=== PATIENT | male | born 1965 | race Caucasian/White ===

== ENCOUNTER 2017-08-10 00:41 | Emergency (ER) | payer SELFPAY | END 2017-08-10 00:50 | disposition left against medical advice (07) | LOC: E/R 00:41 | DX: Z53.21 Procedure and treatment not carried out due to patient leaving prior to being seen by health care provider (principal) ==

== ENCOUNTER 2017-12-14 01:43 | Inpatient (IN) | payer MEDICAID ==
[2017-12-14 02:21] LABS: ADD MAN DIFF? NO
[2017-12-14 02:22] LABS: WHITE BLOOD COUNT 11.6 10^3/ul (4.8-10.8)
[2017-12-14 02:22] LABS: BASOPHIL # 0.1 10^3/ul (0.0-0.1); BASOPHILS % 0.6 % (0.0-2.0); EOSINOPHILS # 0.3 10^3/ul (0.0-0.5); EOSINOPHILS % 2.7 % (0.0-7.0); HEMATOCRIT 43.1 % (42.0-52.0); HEMOGLOBIN 14.7 g/dl (14.0-18.0); LYMPHOCYTES # 4.5 10^3/ul (0.8-2.9); MEAN CORPUSCULAR HEMOGLOBIN 31.3 pg (29.0-33.0); MEAN CORPUSCULAR HGB CONC 34.1 g/dl (32.0-37.0); MEAN CORPUSCULAR VOLUME 91.9 fl (82.0-101.0); MEAN PLATELET VOLUME 10.7 fl (7.4-10.4); MONOCYTE # 0.6 10^3/ul (0.3-0.9); MONOCYTES % 5.2 % (0.0-11.0); NEUTROPHIL # 6.1 10^3/ul (1.6-7.5); NEUTROPHILS % 52.1 % (39.0-77.0); PLATELET COUNT 298 10^3/UL (140-415); RED BLOOD COUNT 4.69 10^6/ul (4.70-6.10); RED CELL DISTRIBUTION WIDTH 13.3 % (11.5-14.5)
[2017-12-14] MEDS ORDERED: NITROGLYCERIN (SL) 0.4 MG TAB SL ×2 (02:30→04:30)
[2017-12-14] MEDS: NITROGLYCERIN 2% 1 GM OINT PKT TD (02:41)
[2017-12-14 02:44] LABS: ANION GAP 12 (8-16); BLOOD UREA NITROGEN 20 mg/dl (7-20); CALCIUM 9.5 mg/dl (8.4-10.2); CARBON DIOXIDE 25 mmol/L (21-31); CHLORIDE 108 mmol/L (97-110); CREATININE 0.95 mg/dl (0.61-1.24); GLUCOSE 137 mg/dl (70-220); POTASSIUM 4.2 mmol/L (3.5-5.1); SODIUM 141 mmol/L (135-144)
[2017-12-14 02:45] LABS: INR 0.89; PROTIME 12.1 Sec (11.9-14.9); PT RATIO 0.9
[2017-12-14 02:56] LABS: B-TYPE NATRIURETIC PEPTIDE 309 PG/ML (0-125); TROPONIN-I 0.017 ng/ml (0.000-0.120)
[2017-12-14] MEDS: KETOROLAC 15 MG INJ IV (03:01)
[2017-12-14] MEDS ORDERED: ACETAMINOPHEN 325 MG TAB PO ×2 (03:30→04:30)
[2017-12-14] MEDS ORDERED: ONDANSETRON 4 MG INJ IV ×2 (03:30→04:30)
[2017-12-14] MEDS: FUROSEMIDE 20 MG INJ IV ×2 (03:45→08:12)
[2017-12-14] MEDS ORDERED: DOCUSATE SODIUM 100 MG CAP PO (04:30)
[2017-12-14] MEDS ORDERED: BISACODYL (EC) 5 MG TAB PO (04:30)
[2017-12-14] MEDS ORDERED: NACL 0.9% 3 ML SYG IV (04:30)
[2017-12-14] MEDS: morphine 2 MG INJ IV ×5 (06:32→23:57)
[2017-12-14 06:43] LABS: D-DIMER 1029.72 ng/ml (<460)
[2017-12-14 06:53] LABS: CHOL/HDL RATIO 5.3 RATIO; CHOLESTEROL 156 mg/dl (100-200); HDL CHOLESTEROL 29 mg/dl (28-71); LDL CHOLESTEROL,CALCULATED 80 mg/dl; TRIGLYCERIDES 234 mg/dl (0-149)
[2017-12-14 06:53] LABS: MAGNESIUM 1.7 mg/dl (1.7-2.5)
[2017-12-14 07:04] LABS: HEMOGLOBIN A1C 5.5 % (0-5.9)
[2017-12-14 07:11] LABS: AMPHETAMINE/METHAMPHETAMINE Negative (NEGATIVE); BARBITURATES Negative (NEGATIVE); BENZODIAZEPINES Negative (NEGATIVE); CANNABINOIDS Negative (NEGATIVE); COCAINE Negative (NEGATIVE); OPIATES Negative (NEGATIVE)
[2017-12-14 07:12] LABS: ETHANOL < 10.0 mg/dl
[2017-12-14] MEDS: HYDROCODONE/APAP (5/325) TAB PO ×2 (08:11→17:20)
[2017-12-14] MEDS ORDERED: ENOXAPARIN 40 MG/0.4 ML SYG SC (10:00)
[2017-12-14 10:07] LABS: TROPONIN-I 0.015 ng/ml (0.000-0.120)
[2017-12-14] MEDS: METOPROLOL 50 MG TAB PO ×2 (11:19→20:19)
[2017-12-14] MEDS: ASPIRIN 81 MG TAB PO (11:19)
[2017-12-14] MEDS: NICOTINE (21 MG/24 HR) PATCH TRANSDERM (11:23)
[2017-12-14] MEDS: ENOXAPARIN 100 MG/ML SYG SC ×2 (13:19→20:24)
[2017-12-14] MEDS: IOHEXOL 300MG/ML 150 ML BTL (15:00)
[2017-12-14] MEDS: NIFEdipine (XL) 60 MG TAB PO (18:52)
[2017-12-14] MEDS: ATORVASTATIN 80 MG TAB PO (20:19)
[2017-12-14] MEDS: SOD CHLORIDE 0.9% 100 ML (20:52)
[2017-12-14] MEDS: IOHEXOL 100 ML (20:53)
[2017-12-15] MEDS: hydrALAzine 20 MG INJ IV (00:40)
[2017-12-15] MEDS: DIPHENHYDRAMINE 50 MG CAP PO (01:22)
[2017-12-15 06:12] LABS: ADD MAN DIFF? NO
[2017-12-15 06:17] LABS: WHITE BLOOD COUNT 12.5 10^3/ul (4.8-10.8)
[2017-12-15 06:17] LABS: BASOPHIL # 0.1 10^3/ul (0.0-0.1); BASOPHILS % 0.6 % (0.0-2.0); EOSINOPHILS # 0.3 10^3/ul (0.0-0.5); EOSINOPHILS % 2.2 % (0.0-7.0); HEMATOCRIT 46.6 % (42.0-52.0); LYMPHOCYTES # 3.9 10^3/ul (0.8-2.9); LYMPHOCYTES % 31.3 % (15.0-51.0); MEAN CORPUSCULAR HGB CONC 34.3 g/dl (32.0-37.0); MEAN CORPUSCULAR VOLUME 90.3 fl (82.0-101.0); MONOCYTE # 0.8 10^3/ul (0.3-0.9); MONOCYTES % 6.1 % (0.0-11.0); NEUTROPHIL # 7.4 10^3/ul (1.6-7.5); NEUTROPHILS % 59.3 % (39.0-77.0); PLATELET COUNT 336 10^3/UL (140-415); RED BLOOD COUNT 5.16 10^6/ul (4.70-6.10); RED CELL DISTRIBUTION WIDTH 13.3 % (11.5-14.5)
[2017-12-15 06:55] LABS: ALANINE AMINOTRANSFERASE 23 IU/L (13-69); ALBUMIN/GLOBULIN RATIO 1.14; ALKALINE PHOSPHATASE 87 IU/L (42-121); ANION GAP 13 (8-16); ASPARTATE AMINO TRANSFERASE 25 IU/L (15-46); BILIRUBIN,INDIRECT 0.7 mg/dl (0-1.1); BILIRUBIN,TOTAL 0.7 mg/dl (0.2-1.3); BLOOD UREA NITROGEN 16 mg/dl (7-20); CALCIUM 9.8 mg/dl (8.4-10.2); CARBON DIOXIDE 25 mmol/L (21-31); CHLORIDE 104 mmol/L (97-110); GLUCOSE 108 mg/dl (70-220); POTASSIUM 4.4 mmol/L (3.5-5.1); SODIUM 138 mmol/L (135-144); TOTAL PROTEIN 7.5 g/dl (6.1-8.1)
[2017-12-15] MEDS: ASPIRIN 81 MG TAB PO (08:39)
[2017-12-15] MEDS: FUROSEMIDE 20 MG INJ IV (08:40)
[2017-12-15] MEDS: NIFEdipine (XL) 60 MG TAB PO (08:40)
[2017-12-15] MEDS: ENOXAPARIN 100 MG/ML SYG SC ×2 (08:45→21:34)
[2017-12-15] MEDS: morphine 2 MG INJ IV ×3 (08:46→18:08)
[2017-12-15] MEDS: NICOTINE (21 MG/24 HR) PATCH TRANSDERM (08:47)
[2017-12-15] MEDS ORDERED: NICOTINE (21 MG/24 HR) PATCH TRANSDERM (10:30)
[2017-12-15] MEDS: METOPROLOL 50 MG TAB PO ×2 (10:55→21:26)
[2017-12-15] MEDS: HYDROCODONE/APAP (5/325) TAB PO ×2 (10:59→17:01)
[2017-12-15] MEDS: ALBUTEROL 0.083% (NEB) 2.5 MG/3 ML AMP HHN (14:56)
[2017-12-15] MEDS: ATORVASTATIN 80 MG TAB PO (21:24)
[2017-12-15] MEDS: FISH OIL 1,000 MG CAP PO (21:26)
[2017-12-15] MEDS: MONTELUKAST 5 MG TAB PO (21:26)
[2017-12-15] MEDS: morphine LIQ (10 MG/5 ML) CUP PO (21:39)
[2017-12-16 06:22] LABS: WHITE BLOOD COUNT 10.2 10^3/ul (4.8-10.8)
[2017-12-16 06:22] LABS: ADD MAN DIFF? NO; BASOPHIL # 0.1 10^3/ul (0.0-0.1); BASOPHILS % 0.6 % (0.0-2.0); EOSINOPHILS # 0.3 10^3/ul (0.0-0.5); EOSINOPHILS % 3.3 % (0.0-7.0); HEMATOCRIT 47.6 % (42.0-52.0); HEMOGLOBIN 16.5 g/dl (14.0-18.0); LYMPHOCYTES # 4.9 10^3/ul (0.8-2.9); LYMPHOCYTES % 48.1 % (15.0-51.0); MEAN CORPUSCULAR HEMOGLOBIN 31.5 pg (29.0-33.0); MEAN CORPUSCULAR HGB CONC 34.7 g/dl (32.0-37.0); MEAN CORPUSCULAR VOLUME 90.8 fl (82.0-101.0); MEAN PLATELET VOLUME 10.6 fl (7.4-10.4); MONOCYTE # 0.8 10^3/ul (0.3-0.9); MONOCYTES % 8.1 % (0.0-11.0); NEUTROPHILS % 39.5 % (39.0-77.0); PLATELET COUNT 356 10^3/UL (140-415); RED BLOOD COUNT 5.24 10^6/ul (4.70-6.10); RED CELL DISTRIBUTION WIDTH 13.2 % (11.5-14.5)
[2017-12-16 06:56] LABS: ANION GAP 14 (8-16); BLOOD UREA NITROGEN 14 mg/dl (7-20); CALCIUM 9.5 mg/dl (8.4-10.2); CARBON DIOXIDE 25 mmol/L (21-31); CHLORIDE 105 mmol/L (97-110); CREATININE 0.84 mg/dl (0.61-1.24); GLUCOSE 103 mg/dl (70-220); POTASSIUM 4.3 mmol/L (3.5-5.1); SODIUM 140 mmol/L (135-144)
[2017-12-16] MEDS: morphine LIQ (10 MG/5 ML) CUP PO ×2 (08:17→13:20)
[2017-12-16] MEDS: REGADENOSON 0.4 MG/5 ML SYG (09:18)
[2017-12-16] MEDS: SOD CHLORIDE 0.9% 100 ML (10:13)
[2017-12-16] MEDS: NICOTINE (21 MG/24 HR) PATCH TRANSDERM (10:30)
[2017-12-16] MEDS: NIFEdipine (XL) 60 MG TAB PO (10:31)
[2017-12-16] MEDS: FISH OIL 1,000 MG CAP PO (10:31)
[2017-12-16] MEDS: HYDROCODONE/APAP (5/325) TAB PO (10:31)
[2017-12-16] MEDS: ASPIRIN 81 MG TAB PO (10:32)
[2017-12-16] MEDS: METOPROLOL 50 MG TAB PO (10:32)
[2017-12-16] MEDS: FUROSEMIDE 20 MG INJ IV (10:32)
[2017-12-16] MEDS: ENOXAPARIN 100 MG/ML SYG SC (10:48)
[2017-12-16] MEDS ORDERED: KETOROLAC 15 MG INJ IV (14:00)
[2017-12-16] MEDS: KETOROLAC 15 MG INJ IV (14:41)
== END 2017-12-16 15:10 | disposition home or self-care (01) | DRG 313 ==
LOC: E/R 01:43 → TEL 03:19
DX: R07.89 Other chest pain (principal); I50.42 Chronic combined systolic (congestive) and diastolic (congestive) heart failure; I11.0 Hypertensive heart disease with heart failure; E78.5 Hyperlipidemia, unspecified; F17.200 Nicotine dependence, unspecified, uncomplicated; F41.9 Anxiety disorder, unspecified; J44.9 Chronic obstructive pulmonary disease, unspecified; Z86.73 Personal history of transient ischemic attack (TIA), and cerebral infarction without residual deficits; Z91.14 Patient's other noncompliance with medication regimen
CPT/HCPCS: 36415; 71045; 71275; 74177; 78452; 80048; 80053; 80061; 80307; 83036; 83735; 83880; 84443; 84484; 85025; 85378; 85610; 93005; 93017; 93306; 93970; 94664; 96374; 99285-25

== ENCOUNTER 2018-02-17 12:09 | Emergency (ER) | payer MEDICAID ==
[2018-02-17] MEDS: KETOROLAC 60 MG INJ IM (13:36)
[2018-02-17] MEDS: HYDROCODONE/APAP (10/325) TAB PO (13:36)
== END 2018-02-17 14:33 | disposition home or self-care (01) ==
LOC: FTE 12:09
DX: S39.92XA Unspecified injury of lower back, initial encounter (principal); I11.0 Hypertensive heart disease with heart failure; I50.9 Heart failure, unspecified; J44.9 Chronic obstructive pulmonary disease, unspecified; F17.210 Nicotine dependence, cigarettes, uncomplicated; X50.0XXA Overexertion from strenuous movement or load, initial encounter; Y92.9 Unspecified place or not applicable; Z79.82 Long term (current) use of aspirin; Z86.73 Personal history of transient ischemic attack (TIA), and cerebral infarction without residual deficits
CPT/HCPCS: 72100; 96372; 99284-25

== ENCOUNTER 2018-04-03 16:19 | Inpatient (IN) | payer MEDICAID ==
[2018-04-03 19:26] LABS: ADD MAN DIFF? NO
[2018-04-03 19:28] LABS: BASOPHILS % 0.2 % (0.0-2.0); EOSINOPHILS % 0.1 % (0.0-7.0); HEMATOCRIT 45.4 % (42.0-52.0); LYMPHOCYTES # 1.8 10^3/ul (0.8-2.9); LYMPHOCYTES % 11.4 % (15.0-51.0); MEAN CORPUSCULAR HEMOGLOBIN 30.4 pg (29.0-33.0); MEAN CORPUSCULAR VOLUME 91.9 fl (82.0-101.0); MEAN PLATELET VOLUME 10.3 fl (7.4-10.4); MONOCYTE # 0.8 10^3/ul (0.3-0.9); MONOCYTES % 5.2 % (0.0-11.0); NEUTROPHIL # 13.2 10^3/ul (1.6-7.5); NEUTROPHILS % 82.6 % (39.0-77.0); PLATELET COUNT 290 10^3/UL (140-415); RED BLOOD COUNT 4.94 10^6/ul (4.70-6.10); RED CELL DISTRIBUTION WIDTH 13.6 % (11.5-14.5)
[2018-04-03] MEDS: ONDANSETRON 4 MG INJ IV (19:34)
[2018-04-03] MEDS: morphine 4 MG/ML VIAL IV (19:34)
[2018-04-03 19:47] LABS: ALBUMIN 3.7 g/dl (3.3-4.9); ALKALINE PHOSPHATASE 114 IU/L (42-121); ANION GAP 11 (5-13); BILIRUBIN,INDIRECT 0.8 mg/dl (0-1.1); BILIRUBIN,TOTAL 0.8 mg/dl (0.2-1.3); BLOOD UREA NITROGEN 67 mg/dl (7-20); CALCIUM 8.7 mg/dl (8.4-10.2); CARBON DIOXIDE 32 mmol/L (21-31); CHLORIDE 95 mmol/L (97-110); CREATININE 7.46 mg/dl (0.61-1.24); Estimated GFR 8 mL/min (>60); GLUCOSE 119 mg/dl (70-220); LIPASE 58 U/L (23-300); POTASSIUM 3.3 mmol/L (3.5-5.1); SODIUM 138 mmol/L (135-144); TOTAL PROTEIN 7.4 g/dl (6.1-8.1)
[2018-04-03] MEDS: SOD CHLORIDE 0.9% 500 ML IV (19:58)
[2018-04-03 20:01] LABS: ALANINE AMINOTRANSFERASE 1397 IU/L (13-69); ASPARTATE AMINO TRANSFERASE 1433 IU/L (15-46)
[2018-04-03 20:51] LABS: CREATINE KINASE 22820 IU/L (23-200)
[2018-04-03] MEDS ORDERED: ACETAMINOPHEN 325 MG TAB PO (21:30)
[2018-04-03] MEDS ORDERED: ONDANSETRON 4 MG INJ IV ×2 (21:30→22:00)
[2018-04-03 21:35] LABS: ADD UMIC YES; UR AMORPHOUS CRYSTAL FEW /HPF (NONE SEEN); UR ASCORBIC ACID NEGATIVE (NEGATIVE); UR BACTERIA FEW /HPF (NONE SEEN); UR BILIRUBIN (Dip) NEGATIVE (NEGATIVE); UR BLOOD (Dip) 2+ mg/dL (NEGATIVE); UR CLARITY SLIGHTLY CLOUDY (CLEAR); UR COLOR YELLOW (YELLOW); UR GLUCOSE (Dip) NEGATIVE (NEGATIVE); UR KETONES (Dip) NEGATIVE (NEGATIVE); UR LEUKOCYTE ESTERASE (Dip) NEGATIVE Leu/ul (NEGATIVE); UR NITRITE (Dip) NEGATIVE (NEGATIVE); UR RBC 3 /HPF (0-5); UR TOTAL PROTEIN (Dip) 1+ mg/dl (NEGATIVE); UR UROBILINOGEN (Dip) NEGATIVE (NEGATIVE); UR WBC 5 /HPF (0-5)
[2018-04-03 21:41] LABS: SODIUM,URINE RANDOM 51 mmol/L (30-90)
[2018-04-03 21:42] LABS: INR 1.05; PROTIME 13.8 Sec (11.9-14.9); PT RATIO 1.1
[2018-04-03 21:43] LABS: PARTIAL THROMBOPLASTIN TIME 37.3 Sec (23.0-35.0)
[2018-04-03 21:45] LABS: CREATININE,URINE RANDOM 140.16 mg/dl (20-370); PROTEIN/CREAT RATIO 0.49 RATIO
[2018-04-03] MEDS: SODIUM CHLORIDE 0.9% 1L BAG IV* (21:45)
[2018-04-03 21:58] LABS: AMPHETAMINE/METHAMPHETAMINE Negative (NEGATIVE); BARBITURATES Negative (NEGATIVE); BENZODIAZEPINES Positive (NEGATIVE); CANNABINOIDS Negative (NEGATIVE); OPIATES Positive (NEGATIVE)
[2018-04-03 21:59] LABS: COCAINE Positive (NEGATIVE)
[2018-04-03] MEDS ORDERED: DOCUSATE SODIUM 100 MG CAP PO (22:00)
[2018-04-03] MEDS ORDERED: BISACODYL (EC) 5 MG TAB PO (22:00)
[2018-04-03 22:10] LABS: PHOSPHORUS 5.1 mg/dl (2.5-4.9)
[2018-04-03 22:12] LABS: HEMOGLOBIN A1C 5.4 % (0-5.9)
[2018-04-03] MEDS: CEFEPIME 2GM/50 ML (PMX) 50 ML IVPB (22:25)
[2018-04-03 22:33] LABS: LACTATE DEHYDROGENASE 2929 IU/L (313-618)
[2018-04-03] MEDS: VANCOMYCIN 1 GM (PMX) 250 ML IVPB (23:36)
[2018-04-04] MEDS: SOD CHLORIDE 0.9% 1,000 ML IV ×8 (00:30→23:24)
[2018-04-04 01:44] LABS: LACTIC ACID 0.8 mmol/L (0.5-2.0)
[2018-04-04 01:58] LABS: ALANINE AMINOTRANSFERASE 945 IU/L (13-69); ALBUMIN 2.4 g/dl (3.3-4.9); ALKALINE PHOSPHATASE 76 IU/L (42-121); ANION GAP 10 (5-13); BILIRUBIN,INDIRECT 0.5 mg/dl (0-1.1); BILIRUBIN,TOTAL 0.5 mg/dl (0.2-1.3); BLOOD UREA NITROGEN 68 mg/dl (7-20); CALCIUM 7.3 mg/dl (8.4-10.2); CARBON DIOXIDE 27 mmol/L (21-31); CHLORIDE 102 mmol/L (97-110); CREATININE 6.82 mg/dl (0.61-1.24); Estimated GFR 9 mL/min (>60); GLUCOSE 102 mg/dl (70-220); POTASSIUM 3.7 mmol/L (3.5-5.1); SODIUM 139 mmol/L (135-144); TOTAL PROTEIN 4.8 g/dl (6.1-8.1)
[2018-04-04 02:17] LABS: CK INDEX 0.2; CREATINE KINASE 13712 IU/L (23-200)
[2018-04-04 02:20] LABS: ASPARTATE AMINO TRANSFERASE 830 IU/L (15-46)
[2018-04-04] MEDS: morphine 2 MG INJ IV ×5 (04:07→22:16)
[2018-04-04] MEDS: PANTOPRAZOLE 40 MG INJ IV (06:26)
[2018-04-04] MEDS: PIPER-TAZO 2.25 GM (PMX) 50 ML IVPB ×3 (06:26→21:52)
[2018-04-04] MEDS: ACETAMINOPHEN 650MG/20.3ML CUP PO (06:26)
[2018-04-04 07:03] LABS: ADD UMIC YES; UR ASCORBIC ACID NEGATIVE (NEGATIVE); UR BACTERIA FEW /HPF (NONE SEEN); UR BILIRUBIN (Dip) NEGATIVE (NEGATIVE); UR BLOOD (Dip) 2+ mg/dL (NEGATIVE); UR CLARITY SLIGHTLY CLOUDY (CLEAR); UR COLOR YELLOW (YELLOW); UR GLUCOSE (Dip) NEGATIVE (NEGATIVE); UR KETONES (Dip) NEGATIVE (NEGATIVE); UR LEUKOCYTE ESTERASE (Dip) NEGATIVE Leu/ul (NEGATIVE); UR NITRITE (Dip) NEGATIVE (NEGATIVE); UR RBC 3 /HPF (0-5); UR TOTAL PROTEIN (Dip) 1+ mg/dl (NEGATIVE); UR UROBILINOGEN (Dip) NEGATIVE (NEGATIVE); UR WBC 3 /HPF (0-5)
[2018-04-04 07:17] LABS: WHITE BLOOD COUNT 12.3 10^3/ul (4.8-10.8)
[2018-04-04 07:17] LABS: ADD MAN DIFF? NO; BASOPHILS % 0.3 % (0.0-2.0); EOSINOPHILS % 0.3 % (0.0-7.0); HEMATOCRIT 36.3 % (42.0-52.0); LYMPHOCYTES # 2.3 10^3/ul (0.8-2.9); LYMPHOCYTES % 18.3 % (15.0-51.0); MEAN CORPUSCULAR HEMOGLOBIN 30.8 pg (29.0-33.0); MEAN CORPUSCULAR HGB CONC 33.1 g/dl (32.0-37.0); MEAN CORPUSCULAR VOLUME 93.3 fl (82.0-101.0); MEAN PLATELET VOLUME 9.9 fl (7.4-10.4); MONOCYTE # 0.7 10^3/ul (0.3-0.9); MONOCYTES % 5.7 % (0.0-11.0); NEUTROPHIL # 9.2 10^3/ul (1.6-7.5); PLATELET COUNT 238 10^3/UL (140-415); RED BLOOD COUNT 3.89 10^6/ul (4.70-6.10); RED CELL DISTRIBUTION WIDTH 13.7 % (11.5-14.5)
[2018-04-04 07:38] LABS: ALANINE AMINOTRANSFERASE 812 IU/L (13-69); ALBUMIN 2.6 g/dl (3.3-4.9); ALBUMIN/GLOBULIN RATIO 0.92; ALKALINE PHOSPHATASE 78 IU/L (42-121); ANION GAP 10 (5-13); ASPARTATE AMINO TRANSFERASE 682 IU/L (15-46); BILIRUBIN,INDIRECT 0.6 mg/dl (0-1.1); BILIRUBIN,TOTAL 0.6 mg/dl (0.2-1.3); BLOOD UREA NITROGEN 69 mg/dl (7-20); CALCIUM 7.5 mg/dl (8.4-10.2); CARBON DIOXIDE 26 mmol/L (21-31); CHLORIDE 106 mmol/L (97-110); CREATININE 6.81 mg/dl (0.61-1.24); Estimated GFR 9 mL/min (>60); GLUCOSE 102 mg/dl (70-220); POTASSIUM 3.9 mmol/L (3.5-5.1); SODIUM 142 mmol/L (135-144); TOTAL PROTEIN 5.4 g/dl (6.1-8.1)
[2018-04-04 08:07] LABS: TROPONIN-I 0.939 ng/ml (0.000-0.120)
[2018-04-04 08:36] LABS: CK INDEX 0.1
[2018-04-04 08:37] LABS: CREATINE KINASE 10605 IU/L (23-200)
[2018-04-04 15:12] LABS: TROPONIN-I 0.627 ng/ml (0.000-0.120)
[2018-04-04 15:38] LABS: CK INDEX 0.1; CREATINE KINASE 8229 IU/L (23-200)
[2018-04-04] MEDS ORDERED: CEFTRIAXONE 2 GM/50 ML (PMX) 50 ML IVPB (20:00)
[2018-04-04] MEDS: LORAZEPAM 2 MG INJ IV (23:25)
[2018-04-05] MEDS: ACETAMINOPHEN 650MG/20.3ML CUP PO (00:16)
[2018-04-05] MEDS ORDERED: FUROSEMIDE 40 MG INJ (01:57)
[2018-04-05] MEDS: SOD CHLORIDE 0.9% 1,000 ML IV (02:27)
[2018-04-05] MEDS: FUROSEMIDE 40 MG INJ IV (02:36)
[2018-04-05] MEDS: morphine 2 MG INJ IV (02:36)
[2018-04-05] MEDS: LORAZEPAM 2 MG INJ IV ×2 (03:59→04:51)
[2018-04-05] MEDS ORDERED: HALOPERIDOL 5 MG INJ (04:38)
[2018-04-05] MEDS: HALOPERIDOL 5 MG INJ IM (04:45)
[2018-04-05] MEDS ORDERED: CHLORDIAZEPOXIDE 25 MG CAP PO (05:00)
[2018-04-05 05:01] LABS: ADD MAN DIFF? NO; BASOPHILS % 0.3 % (0.0-2.0); EOSINOPHILS # 0.2 10^3/ul (0.0-0.5); EOSINOPHILS % 1.4 % (0.0-7.0); HEMATOCRIT 37.1 % (42.0-52.0); HEMOGLOBIN 12.2 g/dl (14.0-18.0); LYMPHOCYTES # 2.3 10^3/ul (0.8-2.9); LYMPHOCYTES % 19.9 % (15.0-51.0); MEAN CORPUSCULAR HEMOGLOBIN 30.4 pg (29.0-33.0); MEAN CORPUSCULAR HGB CONC 32.9 g/dl (32.0-37.0); MEAN CORPUSCULAR VOLUME 92.5 fl (82.0-101.0); MONOCYTE # 0.8 10^3/ul (0.3-0.9); MONOCYTES % 6.8 % (0.0-11.0); NEUTROPHIL # 8.4 10^3/ul (1.6-7.5); NEUTROPHILS % 71.3 % (39.0-77.0); PLATELET COUNT 287 10^3/UL (140-415); RED BLOOD COUNT 4.01 10^6/ul (4.70-6.10); RED CELL DISTRIBUTION WIDTH 13.5 % (11.5-14.5)
[2018-04-05 05:01] LABS: WHITE BLOOD COUNT 11.7 10^3/ul (4.8-10.8)
[2018-04-05] MEDS: PIPER-TAZO 2.25 GM (PMX) 50 ML IVPB (05:25)
[2018-04-05] MEDS: PANTOPRAZOLE 40 MG INJ IV (05:25)
[2018-04-05 05:48] LABS: ALANINE AMINOTRANSFERASE 655 IU/L (13-69); ALBUMIN 2.5 g/dl (3.3-4.9); ALBUMIN/GLOBULIN RATIO 0.96; ALKALINE PHOSPHATASE 116 IU/L (42-121); ANION GAP 7 (5-13); ASPARTATE AMINO TRANSFERASE 454 IU/L (15-46); BILIRUBIN,INDIRECT 0.6 mg/dl (0-1.1); BILIRUBIN,TOTAL 0.6 mg/dl (0.2-1.3); BLOOD UREA NITROGEN 68 mg/dl (7-20); CALCIUM 8.2 mg/dl (8.4-10.2); CARBON DIOXIDE 24 mmol/L (21-31); CHLORIDE 110 mmol/L (97-110); CREATININE 6.37 mg/dl (0.61-1.24); Estimated GFR 9 mL/min (>60); GLUCOSE 98 mg/dl (70-220); PHOSPHORUS 6.2 mg/dl (2.5-4.9); POTASSIUM 4.3 mmol/L (3.5-5.1); SODIUM 141 mmol/L (135-144); TOTAL PROTEIN 5.1 g/dl (6.1-8.1); URIC ACID 10.3 mg/dl (3.1-7.9)
[2018-04-05 07:36] LABS: CREATINE KINASE 7426 IU/L (23-200)
[2018-04-05] MEDS: DEXTROSE 5%-0.45% NACL 1,000 ML IV (09:20)
[2018-04-05] MEDS: HYDROCODONE/APAP (5/325) TAB PO ×2 (15:41→21:17)
[2018-04-05] MEDS: AMLODIPINE 5 MG TAB PO (15:42)
[2018-04-05] MEDS: hydrALAzine 20 MG INJ IV (21:17)
[2018-04-06] MEDS: hydrALAzine 20 MG INJ IV ×3 (02:10→20:32)
[2018-04-06] MEDS: HYDROCODONE/APAP (5/325) TAB PO ×4 (02:10→22:20)
[2018-04-06 06:18] LABS: ADD MAN DIFF? NO
[2018-04-06 06:24] LABS: WHITE BLOOD COUNT 9.4 10^3/ul (4.8-10.8)
[2018-04-06 06:24] LABS: BASOPHILS % 0.2 % (0.0-2.0); EOSINOPHILS # 0.2 10^3/ul (0.0-0.5); EOSINOPHILS % 2.1 % (0.0-7.0); HEMATOCRIT 37.6 % (42.0-52.0); HEMOGLOBIN 12.6 g/dl (14.0-18.0); LYMPHOCYTES # 1.9 10^3/ul (0.8-2.9); LYMPHOCYTES % 20.1 % (15.0-51.0); MEAN CORPUSCULAR HEMOGLOBIN 30.5 pg (29.0-33.0); MEAN CORPUSCULAR HGB CONC 33.5 g/dl (32.0-37.0); MONOCYTE # 0.9 10^3/ul (0.3-0.9); MONOCYTES % 9.3 % (0.0-11.0); NEUTROPHIL # 6.4 10^3/ul (1.6-7.5); NEUTROPHILS % 67.9 % (39.0-77.0); PLATELET COUNT 326 10^3/UL (140-415); RED BLOOD COUNT 4.13 10^6/ul (4.70-6.10); RED CELL DISTRIBUTION WIDTH 13.1 % (11.5-14.5)
[2018-04-06] MEDS: LORAZEPAM 2 MG INJ IV (06:33)
[2018-04-06 07:11] LABS: ALANINE AMINOTRANSFERASE 474 IU/L (13-69); ALBUMIN 2.8 g/dl (3.3-4.9); ALBUMIN/GLOBULIN RATIO 0.93; ALKALINE PHOSPHATASE 136 IU/L (42-121); ANION GAP 10 (5-13); ASPARTATE AMINO TRANSFERASE 317 IU/L (15-46); BILIRUBIN,INDIRECT 0.5 mg/dl (0-1.1); BILIRUBIN,TOTAL 0.5 mg/dl (0.2-1.3); BLOOD UREA NITROGEN 73 mg/dl (7-20); CALCIUM 8.5 mg/dl (8.4-10.2); CARBON DIOXIDE 25 mmol/L (21-31); CHLORIDE 105 mmol/L (97-110); CREATININE 5.54 mg/dl (0.61-1.24); Estimated GFR 11 mL/min (>60); GLUCOSE 122 mg/dl (70-220); PHOSPHORUS 6.5 mg/dl (2.5-4.9); POTASSIUM 3.4 mmol/L (3.5-5.1); SODIUM 140 mmol/L (135-144); TOTAL PROTEIN 5.8 g/dl (6.1-8.1); URIC ACID 10.4 mg/dl (3.1-7.9)
[2018-04-06] MEDS: AMLODIPINE 5 MG TAB PO ×2 (08:53→20:27)
[2018-04-06] MEDS: SOD CHLORIDE 0.9% 1,000 ML IV (11:23)
[2018-04-06] MEDS: ASPIRIN 81 MG TAB PO (13:14)
[2018-04-06] MEDS: LORAZEPAM 1 MG TAB PO (19:37)
[2018-04-06] MEDS: LABETALOL HCL 20MG INJ IV (22:20)
[2018-04-07] MEDS: hydrALAzine 20 MG INJ IV ×3 (00:06→04:19)
[2018-04-07] MEDS: SOD CHLORIDE 0.9% 1,000 ML IV ×2 (00:46→15:23)
[2018-04-07] MEDS: HYDROCODONE/APAP (5/325) TAB PO ×3 (02:11→17:08)
[2018-04-07] MEDS: LORAZEPAM 1 MG TAB PO (05:06)
[2018-04-07 07:11] LABS: ANION GAP 10 (5-13); BLOOD UREA NITROGEN 72 mg/dl (7-20); CALCIUM 8.7 mg/dl (8.4-10.2); CARBON DIOXIDE 25 mmol/L (21-31); CHLORIDE 105 mmol/L (97-110); CREATININE 3.92 mg/dl (0.61-1.24); Estimated GFR 16 mL/min (>60); GLUCOSE 124 mg/dl (70-220); POTASSIUM 3.2 mmol/L (3.5-5.1); SODIUM 140 mmol/L (135-144)
[2018-04-07 07:42] LABS: CREATINE KINASE 1492 IU/L (23-200)
[2018-04-07] MEDS: ASPIRIN 81 MG TAB PO (08:03)
[2018-04-07] MEDS: AMLODIPINE 5 MG TAB PO (08:04)
[2018-04-07] MEDS: POTASSIUM CHLORIDE (SR) 20 MEQ TAB PO (10:54)
[2018-04-07] MEDS ORDERED: MAGNESIUM SULFATE 1 GM/D5W 100 ML IVPB (17:00)
== END 2018-04-07 19:41 | disposition left against medical advice (07) | DRG 917 ==
LOC: ICU 21:18 → TEL 04-05 06:41 → E/R 16:19
DX: T40.601A Poisoning by unspecified narcotics, accidental (unintentional), initial encounter (principal); N17.0 Acute kidney failure with tubular necrosis; G92 Toxic encephalopathy; J18.9 Pneumonia, unspecified organism; M62.82 Rhabdomyolysis; T42.4X1A Poisoning by benzodiazepines, accidental (unintentional), initial encounter; T51.91XA Toxic effect of unspecified alcohol, accidental (unintentional), initial encounter; I11.0 Hypertensive heart disease with heart failure; I50.9 Heart failure, unspecified; E78.5 Hyperlipidemia, unspecified; J44.9 Chronic obstructive pulmonary disease, unspecified; Z91.19 Patient's noncompliance with other medical treatment and regimen; F17.200 Nicotine dependence, unspecified, uncomplicated; I16.0 Hypertensive urgency
CPT/HCPCS: 36415; 70450; 71045; 73130-RT; 74176; 76775; 80048; 80053; 80307; 81001; 81003; 82550; 82553; 82570; 83036; 83605; 83615; 83690; 83735; 84100; 84300; 84484; 84560; 85025; 85610; 85730; 87040; 87081; 87086; 93005; 93306; 96374; 96375; 99291-25

== ENCOUNTER 2018-10-03 22:21 | Emergency (ER) | payer OTHER, MEDICAID ==
[2018-10-03] MEDS: SOD CHLORIDE 0.9% 1,000 ML IV (23:41)
[2018-10-03] MEDS: morphine 4 MG/ML VIAL IV (23:42)
[2018-10-03] MEDS: ONDANSETRON 4 MG INJ IV (23:42)
[2018-10-04 00:42] LABS: ADD MAN DIFF? NO
[2018-10-04 00:44] LABS: ABNORMAL IP MESSAGE 1; BASOPHIL # 0.1 10^3/ul (0.0-0.1); BASOPHILS % 0.6 % (0.0-2.0); EOSINOPHILS # 0.3 10^3/ul (0.0-0.5); EOSINOPHILS % 2.4 % (0.0-7.0); HEMATOCRIT 43.8 % (42.0-52.0); HEMOGLOBIN 14.7 g/dl (14.0-18.0); LYMPHOCYTES # 5.1 10^3/ul (0.8-2.9); LYMPHOCYTES % 48.6 % (15.0-51.0); MEAN CORPUSCULAR HEMOGLOBIN 31.2 pg (29.0-33.0); MEAN CORPUSCULAR HGB CONC 33.6 g/dl (32.0-37.0); MEAN PLATELET VOLUME 10.6 fl (7.4-10.4); MONOCYTE # 0.5 10^3/ul (0.3-0.9); MONOCYTES % 5.1 % (0.0-11.0); NEUTROPHIL # 4.5 10^3/ul (1.6-7.5); PLATELET COUNT 299 10^3/UL (140-415); POSITIVE DIFF @See below; RED BLOOD COUNT 4.71 10^6/ul (4.70-6.10)
[2018-10-04 00:44] LABS: WHITE BLOOD COUNT 10.5 10^3/ul (4.8-10.8)
[2018-10-04 01:04] LABS: INR 0.82; PROTIME 11.4 Sec (11.9-14.9); PT RATIO 0.9
[2018-10-04 01:05] LABS: PARTIAL THROMBOPLASTIN TIME 31.3 Sec (23.0-35.0)
[2018-10-04 01:16] LABS: ALANINE AMINOTRANSFERASE 19 IU/L (13-69); ALBUMIN 4.2 g/dl (3.3-4.9); ALKALINE PHOSPHATASE 84 IU/L (42-121); ANION GAP 5 (5-13); ASPARTATE AMINO TRANSFERASE 38 IU/L (15-46); BILIRUBIN,INDIRECT 0.4 mg/dl (0-1.1); BILIRUBIN,TOTAL 0.4 mg/dl (0.2-1.3); BLOOD UREA NITROGEN 16 mg/dl (7-20); CALCIUM 9.2 mg/dl (8.4-10.2); CARBON DIOXIDE 28 mmol/L (21-31); CHLORIDE 106 mmol/L (97-110); CREATININE 1.29 mg/dl (0.61-1.24); Estimated GFR 58 mL/min (>60); GLUCOSE 108 mg/dl (70-220); LIPASE 96 U/L (23-300); POTASSIUM 3.8 mmol/L (3.5-5.1); SODIUM 139 mmol/L (135-144); TOTAL PROTEIN 7.2 g/dl (6.1-8.1)
[2018-10-04] MEDS: IODIXANOL LOCM 100 ML BTL (01:27)
[2018-10-04] MEDS: SOD CHLORIDE 0.9% 100 ML (01:27)
== END 2018-10-04 03:00 | disposition home or self-care (01) ==
LOC: E/R 10-04 03:00
DX: S00.83XA Contusion of other part of head, initial encounter (principal); S20.212A Contusion of left front wall of thorax, initial encounter; S30.1XXA Contusion of abdominal wall, initial encounter; J44.9 Chronic obstructive pulmonary disease, unspecified; I50.9 Heart failure, unspecified; I11.0 Hypertensive heart disease with heart failure; F17.210 Nicotine dependence, cigarettes, uncomplicated; Y08.89XA Assault by other specified means, initial encounter; Z79.82 Long term (current) use of aspirin; Z86.73 Personal history of transient ischemic attack (TIA), and cerebral infarction without residual deficits
CPT/HCPCS: 36415; 70450; 70486; 71260; 74177; 80053; 83690; 85025; 85610; 85730; 96374; 96375; 99285-25

== ENCOUNTER 2018-12-11 15:40 | Emergency (ER) | payer OTHER ==
[2018-12-11] MEDS: KETOROLAC 60 MG INJ IM (16:54)
[2018-12-11] MEDS: METHOCARBAMOL 750 MG TAB PO (16:54)
== END 2018-12-11 18:01 | disposition home or self-care (01) ==
LOC: FTE 15:40
DX: M25.512 Pain in left shoulder (principal); M54.5 Low back pain; M54.2 Cervicalgia; I11.0 Hypertensive heart disease with heart failure; I50.9 Heart failure, unspecified; J44.9 Chronic obstructive pulmonary disease, unspecified; Z79.82 Long term (current) use of aspirin; Z86.73 Personal history of transient ischemic attack (TIA), and cerebral infarction without residual deficits; Z87.891 Personal history of nicotine dependence
CPT/HCPCS: 72040; 72100; 73030; 96372; 99284-25